=== PATIENT | male | born 1970 | race Two or more races ===

== ENCOUNTER 2022-12-28 08:29 | Day surgery (SDC) | payer OTHER ==
[~2022-12-28] VITALS: Ht 180.3 cm; Wt 80.3 kg
[~2022-12-28 08:29] MED LIST: CRESTOR10 MG PO; METFORMIN500 M2 PO; ZYLOPRIM100 MG PO
[2022-12-28] MEDS ORDERED: OMEPRAZOLE DR40 MG (09:05)
[2022-12-28 11:44] VITALS: BP 121/79
== END 2022-12-28 11:55 | disposition home or self-care (01) | DRG 392 ==
LOC: ORM 08:29
PROVIDERS: ATTEND Internal Medicine Gastroenterology
PROC: 0DB98ZX Excision of Duodenum, Via Natural or Artificial Opening Endoscopic, Diagnostic (ICD-10-PCS; principal; 2022-12-28)
PROC: 0DB78ZX Excision of Stomach, Pylorus, Via Natural or Artificial Opening Endoscopic, Diagnostic (ICD-10-PCS; 2022-12-28)
PROC: 0DB58ZX Excision of Esophagus, Via Natural or Artificial Opening Endoscopic, Diagnostic (ICD-10-PCS; 2022-12-28)
DX: K21.00 Gastro-esophageal reflux disease with esophagitis, without bleeding (principal); K29.50 Unspecified chronic gastritis without bleeding; K29.80 Duodenitis without bleeding; Z79.899 Other long term (current) drug therapy